=== PATIENT | female | born 2000 | race Caucasian/White ===

== ENCOUNTER 2021-06-04 12:36 | Inpatient (IN) ==
[2021-06-04] MEDS ORDERED: Gadolinium Contrast Agent (WT Based) IV PRN (15:03)
[2021-06-04 15:32] LABS: Basophils % 0.3 %; Eosinophils # 0.2 K/mcL (0.0-0.6); Eosinophils % 2.2 %; Hematocrit 43.5 % (35.3-44.9); Hemoglobin 14.6 g/dL (11.5-15.4); Immature Granulocytes % 0.3 % (0-4); Lymphocytes # 2.3 K/mcL (0.6-4.6); Lymphocytes % 30.1 %; Mean Corpuscular HGB Conc 33.6 g/dL (31.6-35.5); Mean Corpuscular Hemoglobin 29.6 pg (28.0-33.3); Mean Corpuscular Volume 88.1 fL (83.0-100.0); Mean Platelet Volume 9.3 fL (9.4-12.4); Monocytes # 0.4 K/mcL (0.0-1.3); Monocytes % 4.5 %; Neutrophils # 4.9 K/mcL (1.6-8.9); Platelet Count 246 K/mcL (140-400); Red Blood Count 4.94 M/mcL (3.82-4.97); Red Cell Distribution Width 12.1 % (11.5-14.5); Segmented Neutrophils % 62.6 %; White Blood Count 7.8 K/mcL (4.3-11.1)
[2021-06-04 15:45] LABS: BUN/Creatinine Ratio 12 (6-26); Blood Urea Nitrogen 10 mg/dL (6-20); Calcium 9.4 mg/dL (8.6-10.3); Carbon Dioxide 28 mEq/L (23-29); Chloride 103 mEq/L (98-107); Glucose 141 mg/dL (70-105); Osmolality,Calculated 283 (280-300); Potassium 3.6 mEq/L (3.5-5.1); Sodium 136 mEq/L (136-145); eGFR For African Americans > 60; eGFR For Non-African Americans > 60
[2021-06-04] MEDS ORDERED: GADOBUTROL 30 MMOL/30 ML VIAL IVP ONE (15:46)
[2021-06-04] MEDS ORDERED: acetaZOLAMIDE 250 MG TABLET PO ONE (18:05)
[2021-06-04] MEDS ORDERED: Melatonin 3 MG TABLET PO PRN (21:39)
[2021-06-04] MEDS ORDERED: Naloxone 0.4 MG/ML INJ IVP PRN (21:39)
[2021-06-04] MEDS ORDERED: Ondansetron 4 MG/2 ML VIAL IVP PRN (21:39)
[2021-06-05 05:24] LABS: Basophils % 0.3 %; Eosinophils # 0.3 K/mcL (0.0-0.6); Eosinophils % 2.6 %; Hematocrit 43.5 % (35.3-44.9); Hemoglobin 14.6 g/dL (11.5-15.4); Immature Granulocytes % 0.4 % (0-4); Lymphocytes # 3.6 K/mcL (0.6-4.6); Mean Corpuscular HGB Conc 33.6 g/dL (31.6-35.5); Mean Corpuscular Hemoglobin 30.3 pg (28.0-33.3); Mean Corpuscular Volume 90.2 fL (83.0-100.0); Mean Platelet Volume 9.9 fL (9.4-12.4); Monocytes # 0.6 K/mcL (0.0-1.3); Monocytes % 6.5 %; Neutrophils # 5.4 K/mcL (1.6-8.9); Platelet Count 287 K/mcL (140-400); Red Blood Count 4.82 M/mcL (3.82-4.97); Red Cell Distribution Width 12.3 % (11.5-14.5); Segmented Neutrophils % 54.2 %; White Blood Count 9.9 K/mcL (4.3-11.1)
[2021-06-05 05:51] LABS: Alanine Aminotransferase 10 Units/L (7-52); Albumin 4.2 g/dL (3.5-5.7); Albumin/Globulin Ratio 1.4 (1.1-2.2); Alkaline Phosphatase 98 Units/L (34-104); Aspartate Amino Transferase 12 Units/L (13-39); BUN/Creatinine Ratio 15 (6-26); Bilirubin,Total 0.6 mg/dL (0.3-1.0); Blood Urea Nitrogen 14 mg/dL (6-20); Calcium 9.4 mg/dL (8.6-10.3); Carbon Dioxide 23 mEq/L (23-29); Chloride 104 mEq/L (98-107); Chol/HDL Ratio 3.4 (0-4.9); Cholesterol 192 mg/dL (< 200); Globulin 2.9 g/dL (2.4-3.5); Glucose 95 mg/dL (70-105); HDL Cholesterol 56 mg/dL (40-59); LDL Cholesterol,Calculated 111 mg/dL (< 100); Magnesium 1.9 mg/dL (1.6-2.6); Osmolality,Calculated 282 (280-300); Phosphorous 4.3 mg/dL (2.7-4.5); Potassium 3.6 mEq/L (3.5-5.1); Sodium 136 mEq/L (136-145); Total Protein 7.1 g/dL (6.4-8.9); Triglycerides 126 mg/dL (< 150); eGFR For African Americans > 60; eGFR For Non-African Americans > 60
[2021-06-05 05:52] LABS: Thyroid Stimulating Hormone 2.392 mcIU/mL (0.340-5.600)
[2021-06-05] MEDS: acetaZOLAMIDE 250 MG TABLET PO SCH ×3 (06:00→21:44)
[2021-06-05 06:03] LABS: Folate 10.2 ng/mL (3.0-16.0)
[2021-06-05] MEDS: Acetaminophen 325 MG TABLET PO PRN (09:28)
[2021-06-05 12:03] LABS: Estimated Average Glucose 108 mg/dl; Hemoglobin A1C 5.4 %
[2021-06-05 16:47] LABS: Red Blood Cell,CSF < 2000 RBC/mcL
[2021-06-05 16:49] LABS: Appearance,CSF Clear (Clear)
[2021-06-05 17:47] LABS: Glucose,CSF 75 mg/dL (40-70); Total Protein,CSF 43 mg/dL (15-45)
[2021-06-05] MEDS: PARoxetine 10 MG TABLET PO SCH (21:59)
[2021-06-06] MEDS: acetaZOLAMIDE 250 MG TABLET PO SCH ×2 (08:54→20:55)
[2021-06-06] MEDS: PARoxetine 10 MG TABLET PO SCH (08:54)
[2021-06-06] MEDS ORDERED: Gadolinium Contrast Agent (WT Based) IV PRN (13:34)
[2021-06-06] MEDS: Acetaminophen 325 MG TABLET PO PRN (16:27)
[2021-06-06] MEDS ORDERED: *HR* OxyCODONE Immed Rel 5 MG TABLET PO ONE (21:55)
[2021-06-07] MEDS ORDERED: *HR* OxyCODONE Immed Rel 5 MG TABLET PO ONE (02:14)
[2021-06-07] MEDS: acetaZOLAMIDE 250 MG TABLET PO SCH (08:08)
[2021-06-07 15:45] VITALS: BP 119/73; PULSE 76; TEMP 98.1; O2SAT 96
[2021-06-08 00:16] LABS: FACV Specimen WHOLE BLOOD
[2021-06-09 11:31] LABS: Fac V Leiden R506Q Mut Result NEGATIVE
== END 2021-06-07 16:30 | disposition home or self-care (01) | DRG 103 ==
LOC: 4WAOSI 12:36 → EMEROOARM 12:36 → SUATTDRO 20:27 → 4WAOSI 21:53
PROVIDERS: ADMIT Internal Medicine; ATTEND Internal Medicine